=== PATIENT | male | born 1975 | race Caucasian/White ===

== ENCOUNTER 2017-06-05 22:25 | Emergency (ER) | payer OTHER ==
[2017-06-05 22:29] VITALS: TEMP 97.5
[2017-06-05] MEDS ORDERED: TDAP ADULT 0.5 ML INJ (BOOSTRIX) IM ONE (22:51)
--- NOTE | 2017-06-05 22:52 | EDPHY ---
H & P Stated Complaint: L thumb laceration - Personal History Current Tetanus/Diphtheria Vaccine: Unsure - Medical/Surgical History Hx Asthma: No Hx Chronic Respiratory Disease: No Hx Diabetes: No Hx Cardiac Disease: No Hx Renal Disease: No Hx Cirrhosis: No Hx Alcoholism: No Hx HIV/AIDS: No Hx Splenectomy or Spleen Trauma: No Other PMH: PMHx: denies. PSHx: L elbow ortho repair - Social History Smoking Status: Never smoked HPI/ROS: Chief complaint: Left thumb laceration History of present illness: This is a 42-year-old male who presents to the emergency department for left thumb laceration. 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 He was accidentally cut by a knife while at work. The knife cut the tip of his left thumb. Minimal pain. Minimal bleeding. No report of abnormal coolness or paresthesias in the thumb. He still able to move it well. (Dustin Noriega) - Physical Exam Exam: General: Alert, nontoxic Skin: There is a 1 cm laceration vertically oriented to the tip of the left thumb that approximates well. No foreign body contamination. Musculoskeletal: No tenderness to the left thumb. Patient is moving the left thumb in the PIP and MCP joint in all blanco without difficulty. Vascular: Capillary refill brisk in the thumb. Neurologic: Sensation intact using light touch and two-point discrimination in the left thumb. (Dustin Noriega) Constitutional: Initial Vital Signs Temperature (C) 36.4 C 06/05/17 22:26 Heart Rate 48 L 06/05/17 22:26 Respiratory Rate 14 06/05/17 22:26 Blood Pressure 130/90 H 06/05/17 22:26 O2 Sat (%) 97 06/05/17 22:26 O2 Delivery Mode Room Air Allergies/Adverse Reactions: No Known Allergies Allergy (Unverified 06/05/17 22:26) Home Medications: Medication Instructions Recorded NK [No Known Home Meds] 06/05/17 Medical Decision Making Procedures: Procedure: Laceration repair. Verbal consent was obtained from the patient. The 1 cm laceration on the left thumb was anesthetized in the usual fashion. The wound was irrigated, draped and explored to its base with a gloved finger. There were no deep structures involved. No tendon injury was identified. The wound was repaired with 5 0 Prolene, 3 simple interrupted sutures. The wound repair was simple. The procedure was performed by myself. (Dustin Noriega) ED Course/Re-evaluation: Patient seen under the supervision of my secondary supervising physician Dr. Pat Parker. Patient presents to the emergency department for a left thumb laceration. The thumb is neurovascularly intact. He has good musculoskeletal control. It is cleaned, repaired and dressed. During this patient did become nauseated and threw up, likely vasovagal response. He was given Zofran and placed in Trendelenburg position and recovered well without complaint. He is discharged home. Asked to follow up with worker's compensation for recheck. Return precautions are given. Patient voiced understanding and agreement with plan. (Dustin Noriega) PHYSICIAN DOCUMENTATION: The patient was evaluated and managed by the Physician [employer] Service Ambassador. My co- signature indicates that I have reviewed this chart and I agree with the findings and plan of care as documented. I am the secondary supervising physician. (Pat Parker) Differential Diagnosis: Included but not limited to laceration, deep structure injury, foreign body contamination (Dustin Noriega) - Data Points Medications Given: Discontinued Medications Ondansetron HCl (Zofran Odt) 4 mg PO EDNOW ONE Stop: 06/05/17 23:05 Last Admin: 06/05/17 23:05 Dose: 4 mg Departure - Departure Disposition: Home, Routine, Self-Care Clinical Impression: Thumb laceration Qualifiers: Encounter type: initial encounter Damage to nail status: with damage Foreign body presence: without foreign body Laterality: left Qualified Code(s): S61.112A - Laceration without foreign body of left thumb with damage to nail, initial encounter Condition: Good Instructions: Care For Your Stitches (ED), Laceration (ED), Acute Wounds (ED) Additional Instructions: Follow-up with worker's compensation or hand doctor for recheck Stitches to be removed in 7 days If symptoms worsen or new symptoms develop return to the emergency room for recheck Referrals: MAGUI,MEDARDO [Other] - As per Instructions Jacobo Glasgow MD [Medical Doctor] - As per Instructions
[2017-06-05] MEDS ORDERED: ONDANSETRON DISINTEGRATING 4 MG TAB ONE (23:02)
[2017-06-05] MEDS ORDERED: ONDANSETRON 0.8 MG/ML UDSYR PO ONE (23:03)
[2017-06-05] MEDS ORDERED: ONDANSETRON DISINTEGRATING 4 MG TAB PO ONE (23:04)
[2017-06-05 23:37] VITALS: BP 124/84; PULSE 54; RESP 16; O2SAT 94
== END 2017-06-12 09:09 | disposition home or self-care (01) ==
PROC: 0HQGXZZ Repair Left Hand Skin, External Approach (ICD-10-PCS; principal; 2017-06-05)
DX: S61.112A Laceration without foreign body of left thumb with damage to nail, initial encounter (principal); W26.0XXA Contact with knife, initial encounter; Y92.69 Other specified industrial and construction area as the place of occurrence of the external cause; Y99.0 Civilian activity done for income or pay; Y93.89 Activity, other specified